=== PATIENT | female | born 1960 ===

== ENCOUNTER 2025-01-03 06:25 | Outpatient (RCR) | payer OTHER, SELFPAY | END 2025-01-03 23:59 | disposition home or self-care (01) | LOC: RPT 06:25 | PROVIDERS: ATTENDING PHYSICIAN Obstetrics & Gynecology; FAMILY PHYSICIAN Internal Medicine | DX: N94.10 Unspecified dyspareunia (principal); M62.89 Other specified disorders of muscle; Z73.6 Limitation of activities due to disability | CPT/HCPCS: 97163; 97530 ==

== ENCOUNTER 2025-02-01 13:05 | Outpatient (RCR) | payer OTHER, SELFPAY | END 2025-02-01 23:59 | disposition home or self-care (01) | LOC: RPT 13:05 | PROVIDERS: ATTENDING PHYSICIAN Obstetrics & Gynecology; FAMILY PHYSICIAN Internal Medicine | DX: N94.10 Unspecified dyspareunia (principal); M62.89 Other specified disorders of muscle; Z73.6 Limitation of activities due to disability | CPT/HCPCS: 97110; 97140; 97530 ==

== ENCOUNTER 2025-07-10 06:57 | Outpatient (RCR) | payer BC, SELFPAY | END 2025-07-10 23:59 | disposition home or self-care (01) | LOC: RPT 06:57 | PROVIDERS: ATTENDING PHYSICIAN Physical Medicine & Rehabilitation; FAMILY PHYSICIAN Internal Medicine | DX: M54.16 Radiculopathy, lumbar region (principal); Z73.6 Limitation of activities due to disability; M54.6 Pain in thoracic spine; M54.2 Cervicalgia; M62.81 Muscle weakness (generalized) | CPT/HCPCS: 97112; 97162 ==

== ENCOUNTER 2025-08-07 09:32 | Outpatient (RCR) | payer BC, SELFPAY | END 2025-08-07 23:59 | disposition home or self-care (01) | LOC: RPT 09:32 | PROVIDERS: ATTENDING PHYSICIAN Physical Medicine & Rehabilitation; FAMILY PHYSICIAN Internal Medicine | DX: M54.16 Radiculopathy, lumbar region (principal); Z73.6 Limitation of activities due to disability; M54.6 Pain in thoracic spine; M54.2 Cervicalgia; M62.81 Muscle weakness (generalized) | CPT/HCPCS: 97110; 97112; 97140; 97530 ==

== ENCOUNTER 2025-08-29 11:14 | Outpatient (RCR) | payer BC, SELFPAY | END 2025-08-30 06:27 | disposition home or self-care (01) | LOC: RPT 11:14 | PROVIDERS: ATTENDING PHYSICIAN Physical Medicine & Rehabilitation; FAMILY PHYSICIAN Internal Medicine | DX: M54.16 Radiculopathy, lumbar region (principal); Z73.6 Limitation of activities due to disability; M54.6 Pain in thoracic spine; M54.2 Cervicalgia; M62.81 Muscle weakness (generalized) | CPT/HCPCS: 97110; 97140; 97530 ==